=== PATIENT | male | born 1955 | race Caucasian/White ===

== ENCOUNTER 2016-11-08 08:00 | Outpatient (CLI) | payer OTHER ==
[2016-11-08 13:11] LABS: BILIRUBIN,URINE NEGATIVE (NEGATIVE)
[2016-11-08 13:24] LABS: UA CHARGE (STRIP ONLY) YES; UR CULTURE IF IND NOT INDICATED
== END 2016-11-08 08:01 | disposition home or self-care (01) ==
LOC: LAB.WCP 08:00
PROVIDERS: ATTEND Family Medicine
DX: R31.9 Hematuria, unspecified (principal)
CPT/HCPCS: 81001; 81003; 87086

== ENCOUNTER 2016-11-26 11:48 | Outpatient (CLI) | payer OTHER ==
--- NOTE | 2016-11-26 17:52 | CT Report ---
CT ABDOMEN AND PELVIS WITHOUT CONTRAST: 11/26/2016 CLINICAL INDICATION: Hematuria. Axial CT images of the abdomen and pelvis were obtained without oral or intravenous contrast. In accordance with CT protocol optimization, one or more of the following dose reduction techniques w ere utilized for this exam: automated exposure control, adjustment of mA and/or KV based on patient size, or use of iterative reconstructive technique. No previous CT is available for comparison. Limited evaluation of the lung bases demonstrates minimal atelectasis and a calcified granuloma in th e right middle lobe. ABDOMEN: The kidneys demonstrate cortical cysts bilaterally. No hydronephrosis or nephrolithiasis i s present. Allowing for the lack of intravenous contrast, the spleen, pancreas, and adrenal glands a ppear unremarkable. There is a small cyst in the right lobe of the liver. The gallbladder is not di lated. No bowel dilatation, free gas, or free fluid is present. No abdominal adenopathy is present. PELVIS: Sigmoid diverticulosis is present, without CT evidence of diverticulitis. No hydroureter or ureterolithiasis is seen. Osseous structures demonstrate degenerative changes. IMPRESSION: NO EVIDENT ETIOLOGY FOR PATIENT'S HEMATURIA. INCIDENTAL HEPATIC AND RENAL CYSTS. JOB #: [id number] EXT JOB #:[id number]
== END 2016-11-26 11:49 | disposition home or self-care (01) ==
LOC: DI 11:48
PROVIDERS: ATTEND Family Medicine
DX: R31.9 Hematuria, unspecified (principal)
CPT/HCPCS: 74176

== ENCOUNTER 2017-02-27 08:00 | Outpatient (CLI) | payer OTHER ==
[2017-02-27 12:32] LABS: BILIRUBIN,URINE NEGATIVE (NEGATIVE); GLUCOSE, URINE (UA) NEGATIVE (NEGATIVE); KETONES,URINE (UA) NEGATIVE (NEGATIVE); LEUKOCYTE ESTERASE, URINE NEGATIVE (NEGATIVE); NITRITE,URINE NEGATIVE (NEGATIVE); OCCULT BLOOD,URINE TRACE-INTA (NEGATIVE); PROTEIN,URINE NEGATIVE (NEGATIVE); UROBILINOGEN,URINE 0.2 (NORMAL) E.U./dL (NORMAL)
[2017-02-27 12:38] LABS: BACTERIA,URINE Rare /HPF (None Seen); CLARITY,URINE CLEAR (CLEAR); RBC,URINE 0-5 /HPF (0-5); SQUAMOUS EPITHELIAL CELL,UR RARE Squamous (<= Few)
[2017-02-27 12:51] LABS: ALBUMIN 4.5 g/dL (3.2-5.5); ALBUMIN/GLOBULIN RATIO 1.6 (1.0-2.2); ALKALINE PHOSPHATASE 63 IU/L (42-121); ALT ALANINE AMINOTRANSFERASE 19 IU/L (10-60); AST ASPARTATE AMINOTRANSFERASE 21 IU/L (10-42); BUN - BLOOD UREA NITROGEN 17 mg/dL (6-20); CALCIUM 9.5 mg/dL (8.5-10.3); CARBON DIOXIDE - CO2 27 mmol/L (21-32); CHLORIDE 104 mmol/L (101-111); CHOL/HDL RATIO 3.1 (<5.0); CHOLESTEROL 179 mg/dL; CREATININE 1.2 mg/dL (0.6-1.2); GFR - MDRD 62 (>89); GLUCOSE 80 mg/dL (70-100); HDL CHOLESTEROL 58 mg/dL; LDL CHOLESTEROL,CALCULATED 95 mg/dL; LDL/HDL RATIO 1.6 (<3.6); SODIUM 138 mmol/L (135-145); TOTAL PROTEIN 7.3 g/dL (6.7-8.2); VLDL CHOLESTEROL 26 mg/dL
[2017-02-27 12:56] LABS: BASOPHILS # (AUTO) 0.1 10^3/uL (0.0-0.1); EOSINOPHILS # (AUTO) 0.2 10^3/uL (0.0-0.7); EOSINOPHILS % (AUTO) 4.1 %; HGB - HEMOGLOBIN 14.9 g/dL (14.0-18.0); LYMPHOCYTES # (AUTO) 1.6 10^3/uL (1.5-3.5); LYMPHOCYTES % (AUTO) 28.8 %; MEAN CORPUSCULAR HEMOGLOBIN 30.8 pg (27.0-31.0); MEAN CORPUSCULAR HGB CONC 33.9 g/dL (32.0-36.0); MEAN CORPUSCULAR VOLUME 90.9 fL (80.0-94.0); MEAN PLATELET VOLUME 7.8 fL (7.4-11.4); MONOCYTES # (AUTO) 0.4 10^3/uL (0.0-1.0); MONOCYTES % (AUTO) 7.1 %; NEUTROPHILS # (AUTO) 3.3 10^3/uL (1.5-6.6); PLT - PLATELET COUNT 375 10^3/uL (130-450); RED BLOOD COUNT 4.85 10^6/uL (4.70-6.10); RED CELL DISTRIBUTION WIDTH 12.8 % (12.0-15.0); WHITE BLOOD COUNT 5.6 x10^3/uL (4.8-10.8)
== END 2017-02-27 08:01 ==
LOC: LAB.WCP 08:00
PROVIDERS: ATTEND Family Medicine
DX: I10 Essential (primary) hypertension (principal); E78.5 Hyperlipidemia, unspecified; R31.9 Hematuria, unspecified
CPT/HCPCS: 36415; 80053; 80061; 81001; 85025

== ENCOUNTER 2017-03-19 11:50 | Outpatient (CLI) | payer OTHER ==
[2017-03-19 19:15] LABS: BASOPHILS % (AUTO) 0.7 %; EOSINOPHILS # (AUTO) 0.4 10^3/uL (0.0-0.7); EOSINOPHILS % (AUTO) 5.6 %; HGB - HEMOGLOBIN 14.9 g/dL (14.0-18.0); LYMPHOCYTES # (AUTO) 1.6 10^3/uL (1.5-3.5); LYMPHOCYTES % (AUTO) 24.6 %; MEAN CORPUSCULAR HEMOGLOBIN 31.1 pg (27.0-31.0); MEAN CORPUSCULAR HGB CONC 35.2 g/dL (32.0-36.0); MEAN CORPUSCULAR VOLUME 88.5 fL (80.0-94.0); MEAN PLATELET VOLUME 7.5 fL (7.4-11.4); MONOCYTES # (AUTO) 0.4 10^3/uL (0.0-1.0); MONOCYTES % (AUTO) 6.7 %; NEUTROPHILS # (AUTO) 4.2 10^3/uL (1.5-6.6); NEUTROPHILS % (AUTO) 62.4 %; PLT - PLATELET COUNT 379 10^3/uL (130-450); RED BLOOD COUNT 4.79 10^6/uL (4.70-6.10); RED CELL DISTRIBUTION WIDTH 12.7 % (12.0-15.0); WHITE BLOOD COUNT 6.7 x10^3/uL (4.8-10.8)
== END 2017-03-19 11:51 ==
LOC: LAB.WCP 11:50
PROVIDERS: ATTEND Physician Assistant Medical
DX: J20.9 Acute bronchitis, unspecified (principal); R50.9 Fever, unspecified
CPT/HCPCS: 36415; 85025

== ENCOUNTER 2020-05-05 09:18 | Outpatient (CLI) | payer OTHER ==
[2020-05-05 12:26] LABS: BASOPHILS % (AUTO) 0.4 %; EOSINOPHILS # (AUTO) 0.2 10^3/uL (0.0-0.7); EOSINOPHILS % (AUTO) 3.7 %; HCT - HEMATOCRIT 44.3 % (42.0-52.0); HGB - HEMOGLOBIN 14.9 g/dL (14.0-18.0); LYMPHOCYTES # (AUTO) 1.3 10^3/uL (1.5-3.5); LYMPHOCYTES % (AUTO) 24.6 %; MEAN CORPUSCULAR HGB CONC 33.6 g/dL (32.0-36.0); MEAN CORPUSCULAR VOLUME 92.1 fL (80.0-94.0); MEAN PLATELET VOLUME 9.6 fL (7.4-11.4); MONOCYTES # (AUTO) 0.4 10^3/uL (0.0-1.0); MONOCYTES % (AUTO) 7.7 %; NEUTROPHILS # (AUTO) 3.3 10^3/uL (1.5-6.6); NEUTROPHILS % (AUTO) 63.4 %; PLT - PLATELET COUNT 328 10^3/uL (130-450); RED BLOOD COUNT 4.81 10^6/uL (4.70-6.10); RED CELL DISTRIBUTION WIDTH 12.2 % (12.0-15.0); WHITE BLOOD COUNT 5.2 x10^3/uL (4.8-10.8)
[2020-05-05 12:42] LABS: ALBUMIN 4.4 g/dL (3.2-5.5); ALBUMIN/GLOBULIN RATIO 1.7 (1.0-2.2); ALKALINE PHOSPHATASE 48 IU/L (42-121); ALT ALANINE AMINOTRANSFERASE 26 IU/L (10-60); AST ASPARTATE AMINOTRANSFERASE 21 IU/L (10-42); BILIRUBIN,TOTAL 1.2 mg/dL (0.2-1.0); BUN - BLOOD UREA NITROGEN 21 mg/dL (6-20); CALCIUM 9.6 mg/dL (8.5-10.3); CARBON DIOXIDE - CO2 27 mmol/L (21-32); CHLORIDE 103 mmol/L (101-111); CHOL/HDL RATIO 3.9 (<5.0); CHOLESTEROL 191 mg/dL; CREATININE 1.2 mg/dL (0.6-1.2); GFR - MDRD 61 (>89); GLUCOSE 94 mg/dL (70-100); HDL CHOLESTEROL 49 mg/dL; LDL CHOLESTEROL,CALCULATED 118 mg/dL; LDL/HDL RATIO 2.4 (<3.6); POTASSIUM 4.1 mmol/L (3.5-5.0); SODIUM 137 mmol/L (135-145); TRIGLYCERIDES 120 mg/dL; VLDL CHOLESTEROL 24 mg/dL
[2020-05-05 12:46] LABS: THYROID STIMULATING HORMONE 2.84 uIU/mL (0.34-5.60)
== END 2020-05-05 23:59 | disposition home or self-care (01) ==
LOC: LAB.WCP 09:18
PROVIDERS: ATTEND Physician Assistant Medical
DX: Z00.00 Encounter for general adult medical examination without abnormal findings (principal); I10 Essential (primary) hypertension; E78.5 Hyperlipidemia, unspecified; Z12.5 Encounter for screening for malignant neoplasm of prostate
CPT/HCPCS: 36415; 80053; 80061; 83721; 84153; 84443; 85025

== ENCOUNTER 2021-01-12 07:57 | Day surgery (SDC) | payer MEDICARE, BC ==
[2021-01-12] MEDS ORDERED: LACTATED RINGERS 1,000 ML IV ONE ×2 (08:29→10:56)
--- NOTE | 2021-01-12 08:35 | ANESTHESIA ---
Pre-Anesthesia VS, & Labs - Diagnosis blood per rectum - Procedure Colonoscopy Vital Signs: Temp Pulse Resp BP Pulse Ox 36.3 C L 55 L 16 155/97 H 98 01/12/21 08:14 01/12/21 08:14 01/12/21 08:14 01/12/21 08:14 01/12/21 08:14 Height: 5 ft 10 in Weight (kg): 87.7 kg Body Mass Index: 27.7 BMI Classification: Overweight - NPO >8 hours - Lab Results Lab results reviewed: Yes Home Medications and Allergies Aspirin [Children's Aspirin] 81 mg PO DAILY 08/26/14 Simvastatin 20 mg PO DAILY 08/26/14 Cetirizine [ZyrTEC] 10 mg PO 08/29/14 Allergies/Adverse Reactions: Allergies Allergy/AdvReac Type Severity Reaction Status Date / Time No Known Drug Allergies Allergy Verified 08/26/14 13:49 Anes History & Medical History - Anesthetic History Anesthesia Complications: reports: No previous complications Family history of Anesthesia Complications: Denies Family history of Malignant Hyperthermia: Denies - Medical History Cardiovascular: reports: Hypertension, High cholesterol Pulmonary: reports: None Gastrointestinal: reports: Other Urinary: reports: None Musculoskeletal: reports: None Endocrine/Autoimmune: reports: None Skin: reports: None - Surgical History General: reports: Colonoscopy Exam General: Alert, Oriented x3, Cooperative Dental: WNL Mouth Openin Fingerbreadth Neck Mobility: Normal Mallampati classification: III Respiratory: Lungs clear, Normal breath sounds, No respiratory distress, No accessory muscle use Cardiovascular: Regular rate, Normal S1, Normal S2, No murmurs Plan Anesthesia Type: General, Total IV Consent for Procedure(s) Verified and Reviewed: Yes Code Status: Attempt Resuscitation ASA classification: 2-Mild systemic disease Is this case an emergency?: No
--- NOTE | 2021-01-12 10:07 | HISTORY & PHYSICAL EXAMINATION ---
Chief Complaint - Chief Complaint Chief Complaint: blood per rectum History of Present Illness - History Obtained From Records Reviewed: yes History obtained from: pt Exam Limitations: none - History of Present Illness HPI Comment/Other: History blood streaked stool and had blood during bowel prep History - Past Medical History Cardiovascular: reports: Hypertension, High cholesterol Respiratory: reports: None Endocrine/Autoimmune: reports: None GI: reports: Other : reports: None HEENT: reports: None Psych: reports: None Musculoskeletal: reports: None Derm: reports: None MRSA Hx?: No - Past Surgical History General: reports: Colonoscopy Meds/Allgy - Home Medications Home Medications: Ambulatory Orders Medication Instructions Recorded Confirmed Aspirin [Children's Aspirin] 81 mg PO DAILY 08/26/14 08/29/14 Simvastatin 20 mg PO DAILY 08/26/14 08/29/14 Cetirizine [ZyrTEC] 10 mg PO 08/29/14 08/29/14 - Allergies Allergies/Adverse Reactions: Allergies Allergy/AdvReac Type Severity Reaction Status Date / Time No Known Drug Allergies Allergy Verified 08/26/14 13:49 Review of Systems - Other Findings Other Findings: 10 pt ros as above otherwise unremarkable Exam - Vital Signs Reviewed Vital Signs: Yes Vital Signs: Vital Signs x48h Temp Pulse Resp BP Pulse Ox 01/12/21 08:14 36.3 C L 55 L 16 155/97 H 98 - Physical Exam General Appearance: positive: No acute distress, Alert Eyes Bilateral: positive: PERRL, EOMI Neck: positive: No JVD Respiratory: positive: No respiratory distress Cardiovascular: positive: Regular rate & rhythm Abdomen: positive: Non-tender, No distention Neurologic/Psychiatric: positive: Oriented x3 Conclusion/Plan - Problem List (1) History of bloody stools Conclusion/Plan: plan colonoscopy. parq held and consent obtained. - Lab Results Lab results reviewed: Yes
[2021-01-12] MEDS ORDERED: PROPOFOL 500 MG/50 ML 500 MG/50 ML VIAL ONE (10:12)
[2021-01-12 11:24] VITALS: BP 124/90
--- NOTE | 2021-01-12 11:47 | ANESTHESIA POST OP EVALUATION ---
Anesthesia Post Eval - Post Anesthesia Eval Vitals: Last Vital Signs Temp 36.3 C L 01/12/21 11:23 Pulse 66 01/12/21 11:23 Resp 16 01/12/21 11:23 BP 124/90 H 01/12/21 11:23 Pulse Ox 98 01/12/21 11:23 CV Function Including HR & BP: Stable Pain Control: Satisfactory Nausea & Vomiting: Negative Mental Status: Baseline Respiratory Status: Airway Patent Hydration Status: Satisfactory Anesthesia Complications: None
== END 2021-01-12 07:58 | disposition home or self-care (01) ==
LOC: SDS 07:57
PROVIDERS: ATTEND Surgery
PROC: 0DBN8ZZ Excision of Sigmoid Colon, Via Natural or Artificial Opening Endoscopic (ICD-10-PCS; 2021-01-12)
PROC: 0DBK8ZX Excision of Ascending Colon, Via Natural or Artificial Opening Endoscopic, Diagnostic (ICD-10-PCS; principal; 2021-01-12 09:45)
DX: K57.31 Diverticulosis of large intestine without perforation or abscess with bleeding (principal); D12.2 Benign neoplasm of ascending colon; D12.5 Benign neoplasm of sigmoid colon; K64.8 Other hemorrhoids
CPT/HCPCS: 45380; 45385; J7120

== ENCOUNTER 2021-04-25 10:39 | Outpatient (CLI) | payer MEDICARE, BC ==
--- NOTE | 2021-04-25 16:58 | XRAY Report ---
PROCEDURE: Ankle 3 View RT INDICATIONS: SPRAIN OF R ANKLE TECHNIQUE: 3 views of the ankle were acquired. COMPARISON: None FINDINGS: Bones: Question tiny avulsion off the tip of the distal fibula. This is not definite. Ankle mortise i s normally aligned. No suspicious bony lesions. Soft tissues: No tibiotalar joint effusion. Achilles tendon appears normal. IMPRESSION: Question tiny avulsion off the tip of the distal fibula. Recommend clinical correlation with the presence or absence of point tenderness. Reviewed by: Sebastian Grimes MD on 04/25/2021 4:57 PM PDT Approved by: Sebastian Grimes MD on 04/25/2021 4:57 PM PDT Station ID: [id number]
== END 2021-04-25 23:59 | disposition home or self-care (01) ==
LOC: DI.N 10:39
PROVIDERS: ATTEND Nurse Practitioner
DX: S93.401A Sprain of unspecified ligament of right ankle, initial encounter (principal); R93.6 Abnormal findings on diagnostic imaging of limbs

== ENCOUNTER 2021-12-01 14:24 | Outpatient (CLI) | payer MEDICARE, BC | END 2021-12-01 14:25 | disposition critical access hospital (66) | LOC: EMS 14:24 | DX: S79.921A Unspecified injury of right thigh, initial encounter (principal); W11.XXXA Fall on and from ladder, initial encounter; Y92.008 Other place in unspecified non-institutional (private) residence as the place of occurrence of the external cause | CPT/HCPCS: A0425; A0427 ==

== ENCOUNTER 2021-12-01 14:43 | Inpatient (IN) | payer MEDICARE, BC ==
[2021-12-01] MEDS ORDERED: ONDANSETRON 4 MG/2 ML VIAL IVP STA ×2 (14:48)
[2021-12-01] MEDS ORDERED: HYDROmorphone 1 MG/ML CARPUJECT IVP STA ×2 (14:48→15:51)
--- NOTE | 2021-12-01 14:53 | ED Physician Documentation ---
History of Present Illness - Stated complaint Stated Complaint: FALL - History obtained from History obtained from: Patient, EMS - History of Present Illness Timing: Today Pain level max: 10 Pain level now: 8 - Additonal information Additional information: Patient is a 66-year-old male brought in by EMS today. He was up on a ladder when he fell off landing on the right hip. He is now complaining of right hip pain. Worse with movement, better with rest. He was placed in a traction splint by EMS. He is unsure if he struck his head or not, but is not having any significant headache. Does not feel that he has neck pain. No numbness or tingling. No back pain. No abdominal pain. No loss of bowel or bladder control. He has a history of hyperlipidemia. He estimates about a 10 foot fall. Review of Systems Ten Systems: 10 systems reviewed and negative Constitutional: denies: Fever, Chills Ears: denies: Ear pain Nose: denies: Rhinorrhea / runny nose, Congestion Respiratory: denies: Cough GI: denies: Nausea, Vomiting, Diarrhea Skin: denies: Rash Musculoskeletal: denies: Neck pain, Back pain Neurologic: denies: Focal weakness, Numbness, Confused, Altered mental status PD PAST MEDICAL HISTORY - Past Medical History Past Medical History: Yes Cardiovascular: Hypertension, High cholesterol Respiratory: None Endocrine/Autoimmune: None GI: Other : None HEENT: None Psych: None Musculoskeletal: None Derm: None - Past Surgical History General: Colonoscopy - Present Medications Home Medications: Ambulatory Orders Medication Instructions Recorded Confirmed Aspirin [Children's Aspirin] 81 mg PO DAILY 08/26/14 08/29/14 Simvastatin 20 mg PO DAILY 08/26/14 08/29/14 Cetirizine [ZyrTEC] 10 mg PO 08/29/14 08/29/14 - Allergies Allergies/Adverse Reactions: Allergies Allergy/AdvReac Type Severity Reaction Status Date / Time No Known Drug Allergies Allergy Verified 12/01/21 14:50 PD ED PE NORMAL - Vitals Vital signs reviewed: Yes - General General: Alert and oriented X 3, No acute distress, Well developed/nourished - HEENT HEENT: Atraumatic, PERRL, Ears normal, Moist mucous membranes, Pharynx benign - Neck Neck: Other (Soft collar was placed by EMS, mild upper C-spine tenderness to palpation.) - Cardiac Cardiac: RRR - Respiratory Respiratory: No respiratory distress, Clear bilaterally - Abdomen Abdomen: Soft, Non tender, Non distended - Back Back: No spinal TTP (No midline tenderness to palpation. No step-off or deformity) - Derm Derm: Warm and dry - Extremities Extremities: Other (Right leg is in a traction splint. Tender to palpation over the proximal right femur and greater trochanter area. Limited range of motion secondary to pain. Neurovascularly intact.) - Neuro Neuro: Alert and oriented X 3, standard machine stitcher 2-12 intact, No motor deficit, No sensory deficit, Normal speech Eye Opening: Spontaneous Motor: Obeys Commands Verbal: Oriented GCS Score: 15 - Psych Psych: Normal mood, Normal affect Results - Vitals Vitals: Vital Signs - 24 hr 12/01/21 12/01/21 12/01/21 14:50 14:55 16:55 Temperature 36.5 C 36.5 C Heart Rate 72 72 60 Respiratory 16 16 16 Rate Blood Pressure 170/90 H 170/90 H 134/96 H O2 Saturation 98 100 98 Oxygen O2 Source Room air - Labs Labs: Laboratory Tests 12/01/21 12/01/21 12/01/21 14:56 14:56 15:30 WBC 5.6 RBC 4.80 Hgb 14.5 Hct 43.0 MCV 89.6 MCH 30.2 MCHC 33.7 RDW 12.7 Plt Count 350 MPV 9.2 Neut # (Auto) 3.8 Lymph # (Auto) 1.[address] # (Auto) 0.3 Eos # (Auto) 0.1 Baso # (Auto) 0.0 Absolute Nucleated RBC 0.00 Nucleated RBC % 0.0 Sodium 136 Potassium 4.2 Chloride 104 Carbon Dioxide 26 Anion Gap 6.0 BUN 24 H Creatinine 1.1 Estimated GFR (MDRD) 67 L Glucose 118 H Calcium 9.5 Total Bilirubin 1.0 AST 22 ALT 21 Alkaline Phosphatase 55 Total Protein 7.2 Albumin 4.4 Globulin 2.8 Albumin/Globulin Ratio 1.6 Nasal Adenovirus (PCR) NOT DETECTED Nasal B. parapertussis DNA (PCR) NOT DETECTED Nasal Coronavir 229E PCR NOT DETECTED Nasal Coronavir HKU1 PCR NOT DETECTED Nasal Coronavir NL63 PCR NOT DETECTED Nasal Coronavir OC43 PCR NOT DETECTED Nasal Enterovir/Rhinovir PCR NOT DETECTED Nasal Influenza B PCR NOT DETECTED Nasal Influenza A PCR NOT DETECTED Nasal Parainfluen 1 PCR NOT DETECTED Nasal Parainfluen 2 PCR NOT DETECTED Nasal Parainfluen 3 PCR NOT DETECTED Nasal Parainfluen 4 PCR NOT DETECTED Nasal RSV (PCR) NOT DETECTED Nasal B.pertussis DNA PCR NOT DETECTED Nasal C.pneumoniae (PCR) NOT DETECTED [place] Human Metapneumo PCR NOT DETECTED Nasal M.pneumoniae (PCR) NOT DETECTED Nasal SARS-CoV-2 (PCR) NOT DETECTED - Rads (name of study) Right hip x-ray Radiology: Final report received, EMP read contemporaneously, See rad report (R femoral neck fracture) Right femur x-ray Radiology: Final report received, EMP read contemporaneously, See rad report (R femoral neck fx) Head CT Radiology: Final report received, EMP read contemporaneously, See rad report (no acute abnormality) Cervical spine CT Radiology: Final report received, EMP read contemporaneously, See rad report (no acute abnormality) PD MEDICAL DECISION MAKING - ED course Complexity details: reviewed results, re-evaluated patient, considered differential, d/w patient, d/w family, d/w home performance consultant ED course: 66 year old male with a R femoral neck fracture. Fascia iliaca block performed with good result. Discussed the case with Dr. Andrews, orthopedics, he states he will plan for OR tomorrow. Request hospitalist admission. Dr. Pappas was consulted, she states that she will not admit the patient, she request Ortho to admit the patient. Dr. Andrews will admit the patient. This document was made in part using voice recognition software. While efforts are made to proofread this document, sound alike and grammatical errors may occur. Departure - Departure Disposition: 66 [facility] DC/Xfer Clinical Impression: Femoral neck fracture Qualifiers: Encounter type: initial encounter Fracture type: closed Laterality: right Qualified Code(s): S72.001A - Fracture of unspecified part of neck of right femur, initial encounter for closed fracture Condition: Stable Discharge Date/Time: 12/01/21 18:15
[2021-12-01 15:02] LABS: BASOPHILS % (AUTO) 0.5 %; EOSINOPHILS # (AUTO) 0.1 10^3/uL (0.0-0.7); EOSINOPHILS % (AUTO) 2.5 %; HGB - HEMOGLOBIN 14.5 g/dL (14.0-18.0); LYMPHOCYTES # (AUTO) 1.3 10^3/uL (1.5-3.5); MEAN CORPUSCULAR HEMOGLOBIN 30.2 pg (27.0-31.0); MEAN CORPUSCULAR HGB CONC 33.7 g/dL (32.0-36.0); MEAN CORPUSCULAR VOLUME 89.6 fL (80.0-94.0); MEAN PLATELET VOLUME 9.2 fL (7.4-11.4); MONOCYTES # (AUTO) 0.3 10^3/uL (0.0-1.0); MONOCYTES % (AUTO) 4.7 %; NEUTROPHILS # (AUTO) 3.8 10^3/uL (1.5-6.6); NEUTROPHILS % (AUTO) 67.9 %; PLT - PLATELET COUNT 350 10^3/uL (130-450); RED CELL DISTRIBUTION WIDTH 12.7 % (12.0-15.0); WHITE BLOOD COUNT 5.6 x10^3/uL (4.8-10.8)
[2021-12-01] MEDS ORDERED: TRANEXAMIC ACID 1,000 MG in SODIUM CHLORIDE 0.9% 100ML 100 ML IV STA (15:10)
[2021-12-01 15:15] LABS: ALBUMIN 4.4 g/dL (3.2-5.5); ALBUMIN/GLOBULIN RATIO 1.6 (1.0-2.2); CALCIUM 9.5 mg/dL (8.5-10.3); CREATININE 1.1 mg/dL (0.6-1.2); POTASSIUM 4.2 mmol/L (3.5-5.0); TOTAL PROTEIN 7.2 g/dL (6.7-8.2)
[2021-12-01] MEDS ORDERED: DEXAMETHASONE 10 MG/ML VIAL IVP STA (15:15)
[2021-12-01] MEDS ORDERED: ROPIVACAINE 0.5% PF 30 ML VIAL SUBQ STA (15:15)
--- NOTE | 2021-12-01 15:42 | XRAY Report ---
PROCEDURE: Hip w/Pelvis 2-3V RT INDICATIONS: fall off ladder, R hip pain TECHNIQUE: AP pelvis with lateral view(s) of the right hip(s). COMPARISON: None. FINDINGS: Bones: Subcapital right femoral neck fracture with mild impaction. The femoral head appears slightly rotated clockwise. The remainder of the pelvis and left hip are grossly intact on this single view. Soft tissues: The visualized bowel gas pattern is normal. No suspicious soft tissue calcifications. IMPRESSION: 1. Right subcapital femoral neck fracture without visible dislocation. Reviewed by: Pilar Mejia MD on 12/01/2021 2:41 PM EDSON Approved by: Pilar Mejia MD on 12/01/2021 2:41 PM AKDINO Station ID: [id number]
--- NOTE | 2021-12-01 15:43 | XRAY Report ---
PROCEDURE: Femur 1V RT INDICATIONS: FALL OFF LADDER R FEMUR PAIN TECHNIQUE: Single view of the distal right femur was acquired. COMPARISON: None. FINDINGS: Bones: No displaced fractures or dislocations. No suspicious bony lesions. Soft tissues: No suspicious soft tissue calcifications or masses. IMPRESSION: No displaced distal femur fractures on this single view. Reviewed by: Pilar Mejia MD on 12/01/2021 2:42 PM EDSON Approved by: Pilar Mejia MD on 12/01/2021 2:42 PM AKDINO Station ID: [id number]
--- NOTE | 2021-12-01 15:46 | CT Report ---
PROCEDURE: HEAD WO INDICATIONS: fall off ladder, head injury TECHNIQUE: Noncontrast 4.5 mm thick angled axial sections acquired from the foramen magnum to the vertex. For r adiation dose reduction, the following was used: automated exposure control, adjustment of mA and/or kV according to patient size. COMPARISON: None. FINDINGS: Image quality: Excellent. CSF spaces: Basal cisterns are patent. No extra-axial fluid collections. Ventricles are normal in size and shape. Brain: No midline shift. No intracranial masses or hemorrhage. Slight age related cortical volume loss. Mcclain-white matter interface is normal. Skull and face: Calvarium and visualized facial bones are intact, without suspicious lesions. Sinuses: Visualized sinuses and mastoids are clear. IMPRESSION: 1. No CT evidence of acute intracranial trauma. 2. No significant soft tissue injury or visible fractures. Reviewed by: Pilar Mejia MD on 12/01/2021 2:44 PM EDSON Approved by: Pilar Mejia MD on 12/01/2021 2:44 PM AKDT Station ID: [id number]
[2021-12-01] MEDS ORDERED: diazePAM INJ 5 MG/ML SYRINGE IVP STA (15:49)
--- NOTE | 2021-12-01 15:50 | CT Report ---
PROCEDURE: CERVICAL SPINE WO INDICATIONS: fall off ladder, neck pain TECHNIQUE: Noncontrast 3 mm thick sections acquired from the skull base to the T4 level. Sagittal and coronal r eformats were then constructed. For radiation dose reduction, the following was used: automated exp osure control, adjustment of mA and/or kV according to patient size. COMPARISON: None. FINDINGS: Image quality: Excellent. Bones: No fractures or dislocations. Degenerative disc height loss at C5-6 with minor endplate spur ring. Mild degenerative change at the atlantodental interval. Mild multilevel left-sided facet arthro jose. Visualized superior ribs are intact. Soft tissues: Prevertebral soft tissues are normal in thickness. No paravertebral hematomas. No ap ical pneumothoraces. IMPRESSION: 1. No CT evidence of acute cervical spine trauma. Reviewed by: Pilar Mejia MD on 12/01/2021 2:48 PM AKDT Approved by: Pilar Mejia MD on 12/01/2021 2:48 PM AKDT Station ID: [id number]
[2021-12-01] MEDS ORDERED: KETOROLAC 30 MG/ML VIAL IVP STA (15:51)
[2021-12-01] MEDS ORDERED: ROPIVACAINE 0.5% PF 20 ML AMPULE SUBQ ONE (16:00)
[2021-12-01 16:27] LABS: B. PARAPERTUSSIS- RESP PCR PAN NOT DETECTED; B. PERTUSSIS- RESP PCR PANEL NOT DETECTED; C. PNEUMONIAE- RESP PCR PANEL NOT DETECTED; CORONAVIRUS 229E-RESP PCR NOT DETECTED; CORONAVIRUS HKU1-RESP PCR NOT DETECTED; CORONAVIRUS NL63-RESP PCR NOT DETECTED; CORONAVIRUS OC43-RESP PCR NOT DETECTED; HUMAN METAPNEUMOVIRUS NOT DETECTED; INFLUENZA A- RESP PCR PANEL NOT DETECTED; INFLUENZA B - RESP PCR PANEL NOT DETECTED; M. PNEUMONIAE- RESP PCR PANEL NOT DETECTED; PARAINFLUENZA VIRUS 1 NOT DETECTED; PARAINFLUENZA VIRUS 2 NOT DETECTED; PARAINFLUENZA VIRUS 3 NOT DETECTED; PARAINFLUENZA VIRUS 4 NOT DETECTED; RHINOVIRUS/ENTEROVIRUS NOT DETECTED; RSV- RESP PCR PANEL NOT DETECTED; SARS-CoV-2 -RESP PCR PANEL NOT DETECTED
--- NOTE | 2021-12-01 17:42 | HISTORY & PHYSICAL EXAMINATION ---
HPI - History Obtained From History obtained from: Patient, Family Exam limitations: No limitations - History of Present Illness HPI Comment/Other: This is a 66-year-old man who was referred from the emergency room, Dr. Kelley. The patient was on a lean to ladder, about 10 to 12 feet high. He was trying to secure a large wood beam to the roof area when the beam gave way and the ladder started to move away from its support. He jumped from the ladder and landed on his right leg. He had immediate pain to the right upper thigh and could not bear weight. His family was at home, children, and they sought help for him; he was brought to the emergency room at [facility]. He has no other complaints of pain other than the right upper thigh. He denies neck, back, upper extremity, chest, abdominal or left lower extremity pain. He has no pain to his right knee or lower leg. He did have a Achilles tendon rupture to the right leg treated nonoperatively and this seems to be recovering well. 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 He is very active and enjoys pickleball and that is how he injured his Achilles tendon. His general health has been very good. He den ies chest pain, shortness of breath, dizziness or syncope associated with the fall, no history of loss of consciousness. He does have a history of hypertension, does not smoke or use alcohol excessively. He denies any history of myocardial infarction, stroke, cancer, diabetes or pulmonary embolus. He denies bleeding ulcers or hepatitis.This is a 66-year-old man who was referred from the emergency room, Dr. Kelley. The patient was on a lean to ladder, about 10 to 12 feet high. He was trying to secure a large wood beam to the roof area when the beam gave way and the ladder started to move away from its support. He jumped from the ladder and landed on his right leg. He had immediate pain to the right upper thigh and could not bear weight. His family was at home, children, and they sought help for him; he was brought to the emergency room at [facility]. He has no other complaints of pain other than the right upper thigh. He denies neck, back, upper extremity, chest, abdominal or left lower extremity pain. He has no pain to his right knee or lower leg. He did have a Achilles tendon rupture to the right leg treated nonoperatively and this seems to be recovering well. 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 He is very active and enjoys pickleball and that is how he injured his Achilles tendon. His general health has been very good. He denies chest pain, shortness of breath, dizziness or syncope associated with the fall, no history of loss of consciousness. He does have a history of hypertension, does not smoke or use alcohol excessively. He denies any history of myocardial infarction, stroke, cancer, diabetes or pulmonary embolus. He denies bleeding ulcers or hepatitis.He is normally ambulatory and has no previous problems with his right hip. There is no family history of arthritis of hips. PMH/PSH - Past Medical History Cardiovascular: positive: Hypertension, High cholesterol Respiratory: positive: None Endocrine/Autoimmune: positive: None GI: positive: Other : positive: None HEENT: positive: None Psych: positive: None Musculoskeletal: positive: None Derm: positive: None MRSA Hx?: No - Past Surgical History General: positive: Colonoscopy Social & Family Hx - Social History Does the pt smoke?: No ETOH Use: Beer Does the pt have substance abuse?: No Meds/Allgy - Home Medications Home Medications: Ambulatory Orders Medication Instructions Recorded Confirmed Aspirin [Children's Aspirin] 81 mg PO DAILY 08/26/14 08/29/14 Simvastatin 20 mg PO DAILY 08/26/14 08/29/14 Cetirizine [ZyrTEC] 10 mg PO 08/29/14 08/29/14 - Allergies Allergies/Adverse Reactions: Allergies Allergy/AdvReac Type Severity Reaction Status Date / Time No Known Drug Allergies Allergy Verified 12/01/21 14:50 Exam - Vital Signs Vital Signs: Vital Signs x48h Temp Pulse Resp BP Pulse Ox 12/01/21 16:55 60 16 134/96 H 98 12/01/21 14:55 36.5 C 72 16 170/90 H 100 12/01/21 14:50 36.5 C 72 16 170/90 H 98 - Physical Exam General Appearance: positive: Mild distress Respiratory: positive: Chest non-tender, No respiratory distress, Breath sounds nml Cardiovascular: positive: Regular rate & rhythm, No murmur, No gallop Peripheral Pulses: positive: 2+ Abdomen: positive: Non-tender Back: positive: Nml inspection Skin: positive: Color nml Neurologic/Psychiatric: positive: Oriented x3, Motor nml, Sensation nml, Mood/affect nml Comments/Other: He moves both upper extremities very well fully without pain as well as the left lower extremity. The right leg is shortened and externally rotated and there is associated marked pain with any movement, especially rotation. Skin is intact about the right hip. There is no sign of hematoma about right hip. Ne urovascular is intact to upper and lower extremities Results - Lab Results Fish Bones: 12/01/21 14:56 12/01/21 14:56 Other Lab Results: Lab Results x24hrs 12/01/21 12/01/21 12/01/21 Range/Units 15:30 14:56 14:56 WBC 5.6 (4.8-10.8) x10^3/uL RBC 4.80 (4.70-6.10) 10^6/uL Hgb 14.5 (14.0-18.0) g/dL Hct 43.0 (42.0-52.0) % MCV 89.6 (80.0-94.0) fL MCH 30.2 (27.0-31.0) pg MCHC 33.7 (32.0-36.0) g/dL RDW 12.7 (12.0-15.0) % Plt Count 350 (130-450) 10^3/uL MPV 9.2 (7.4-11.4) fL Neut # (Auto) 3.8 (1.5-6.6) 10^3/uL Lymph # (Auto) 1.3 L (1.5-3.5) 10^3/uL [place] # (Auto) 0.3 (0.0-1.0) 10^3/uL Eos # (Auto) 0.1 (0.0-0.7) 10^3/uL Baso # (Auto) 0.0 (0.0-0.1) 10^3/uL Absolute Nucleated RBC 0.00 x10^3/uL Nucleated RBC % 0.0 /100WBC Sodium 136 (135-145) mmol/L Potassium 4.2 (3.5-5.0) mmol/L Chloride 104 (101-111) mmol/L Carbon Dioxide 26 (21-32) mmol/L Anion Gap 6.0 (6-13) BUN 24 H (6-20) mg/dL Creatinine 1.1 (0.6-1.2) mg/dL Estimated GFR (MDRD) 67 L (>89) Glucose 118 H (70-100) mg/dL Calcium 9.5 (8.5-10.3) mg/dL Total Bilirubin 1.0 (0.2-1.0) mg/dL AST 22 (10-42) IU/L ALT 21 (10-60) IU/L Alkaline Phosphatase 55 (42-121) IU/L Total Protein 7.2 (6.7-8.2) g/dL Albumin 4.4 (3.2-5.5) g/dL Globulin 2.8 (2.1-4.2) g/dL Albumin/Globulin Ratio 1.6 (1.0-2.2) Nasal Adenovirus (PCR) NOT DETECTED Nasal B. parapertussis DNA (PCR) NOT DETECTED Nasal Coronavir 229E PCR NOT DETECTED Nasal Coronavir HKU1 PCR NOT DETECTED Nasal Coronavir NL63 PCR NOT DETECTED Nasal Coronavir OC43 PCR NOT DETECTED Nasal Enterovir/Rhinovir PCR NOT DETECTED Nasal Influenza B PCR NOT DETECTED Nasal Influenza A PCR NOT DETECTED Nasal Parainfluen 1 PCR NOT DETECTED Nasal Parainfluen 2 PCR NOT DETECTED Nasal Parainfluen 3 PCR NOT DETECTED Nasal Parainfluen 4 PCR NOT DETECTED Nasal RSV (PCR) NOT DETECTED Nasal B.pertussis DNA PCR NOT DETECTED Nasal C.pneumoniae (PCR) NOT DETECTED [place] Human Metapneumo PCR NOT DETECTED Nasal M.pneumoniae (PCR) NOT DETECTED Nasal SARS-CoV-2 (PCR) NOT DETECTED - Diagnostic Imaging Results Diagnostic Imaging Results: negative: Read independently (There is a displaced femoral neck fracture right hip) Impression/Plan - Problem List Problem List: # 1Displaced femoral neck fracture right hip The plan would be partial or total hip replacement right hip. I have discussed the pros and cons of both forms of surgical treatment, favor the latter because of reports of improved function in younger and healthy patients. The patient is in agreement to surgery. The risks, goals and likelihood of achieving goals, alternatives to surgery and their consequences, disability and rarely were discussed. The complication rate is greater for total hip replacement than a hemiarthroplasty. Because we do not have someone that can sterilize equipment this weekend and we do not have hip replacement equipment here, his surgery will need to be delayed until Friday morning to allow for arrival and processing of hip replacement equipment. Our hospitalist is refusing to see the patient. The patient is agreement to surgery, discussed with both he and his ; both are in agreement. An informed consent has been obtained as best as possible on the current urgent situation. #2 Controlled hypertension
[2021-12-01] MEDS ORDERED: DOCUSATE SODIUM 100 MG CAPSULE PO PRN (17:53)
[2021-12-01] MEDS ORDERED: fentaNYL 250 MCG/5 ML VIAL IVP PRN (17:53)
[2021-12-01] MEDS ORDERED: ONDANSETRON ODT 4 MG TABLET TL PRN (17:53)
[2021-12-01] MEDS ORDERED: fentaNYL 100 MCG/2 ML VIAL IVP PRN (18:11)
[2021-12-01] MEDS: NS W/20 MEQ KCL 1,000 ML IV SCH (18:28)
[2021-12-01] MEDS: CELECOXIB 100 MG CAPSULE PO SCH (19:00)
[2021-12-01] MEDS ORDERED: ACETAMINOPHEN 325 MG TABLET PO SCH (22:00)
[2021-12-01] MEDS: oxyCODONE 5 MG TABLET PO PRN (23:47)
[2021-12-02] MEDS: NS W/20 MEQ KCL 1,000 ML IV SCH ×3 (01:51→17:50)
[2021-12-02] MEDS: ACETAMINOPHEN 500 MG TABLET PO SCH ×3 (05:06→21:10)
--- NOTE | 2021-12-02 08:59 | PHARMACY PROGRESS NOTE ---
- Best Possible Medication History Admit Date and Time: 12/01/21 4138 Processed by: Nursing Medication History completed: Yes As the person ultimately responsible for medication therapy, providers are able to order a medication from an existing home medication list in [facility] via the "Reconcile Routine" prior to Confirmation of that medication by office support clerk. Such practice is discouraged except when the physician, in their clinical judgment, deems that a medical need exists for a medication without regard to previous use.
[2021-12-02] MEDS: CELECOXIB 100 MG CAPSULE PO SCH ×2 (09:07→21:10)
--- NOTE | 2021-12-02 09:50 | PROVIDER PROGRESS NOTE ---
Subjective - General Admit Date: 12/01/21 Procedure Date: 12/03/21 Post Op Days: 1 Procedure Performed: Planned for right total hip arthroplasty 12/03/2021 - Review of Systems Pulmonary: positive: No symptoms Cardiovascular: positive: No symptoms Skin: positive: No symptoms Psychiatric: positive: No symptoms - Other Other Information/Narrative: No nausea, vomiting, fevers, chills Pain control adequate when laying supine, increased pain with elevated head of bed Objective - Patient Data Vital Signs: Vital Signs x48h Temp Pulse Resp BP Pulse Ox 12/02/21 07:21 36.3 C L 62 16 124/80 97 12/02/21 05:09 36.3 C L 61 18 128/84 H 98 Weight: Weight 11/30/21 12/01/21 12/02/21 23:59 23:59 23:59 Weight (kg) 87.5 kg Intake & Output: Intake and Output Totals x24h 11/30/21 12/01/21 12/02/21 23:59 23:59 23:59 Intake Total 110 1362.917 Output Total 250 500 Balance -140 862.917 - Lab Results Lab Results: 12/01/21 14:56 12/01/21 14:56 Other Lab Results: Lab Results x24hrs 12/01/21 12/01/21 12/01/21 Range/Units 15:30 14:56 14:56 WBC 5.6 (4.8-10.8) x10^3/uL RBC 4.80 (4.70-6.10) 10^6/uL Hgb 14.5 (14.0-18.0) g/dL Hct 43.0 (42.0-52.0) % MCV 89.6 (80.0-94.0) fL MCH 30.2 (27.0-31.0) pg MCHC 33.7 (32.0-36.0) g/dL RDW 12.7 (12.0-15.0) % Plt Count 350 (130-450) 10^3/uL MPV 9.2 (7.4-11.4) fL Neut # (Auto) 3.8 (1.5-6.6) 10^3/uL Lymph # (Auto) 1.3 L (1.5-3.5) 10^3/uL Dukes # (Auto) 0.3 (0.0-1.0) 10^3/uL Eos # (Auto) 0.1 (0.0-0.7) 10^3/uL Baso # (Auto) 0.0 (0.0-0.1) 10^3/uL Absolute Nucleated RBC 0.00 x10^3/uL Nucleated RBC % 0.0 /100WBC Sodium 136 (135-145) mmol/L Potassium 4.2 (3.5-5.0) mmol/L Chloride 104 (101-111) mmol/L Carbon Dioxide 26 (21-32) mmol/L Anion Gap 6.0 (6-13) BUN 24 H (6-20) mg/dL Creatinine 1.1 (0.6-1.2) mg/dL Estimated GFR (MDRD) 67 L (>89) Glucose 118 H (70-100) mg/dL Calcium 9.5 (8.5-10.3) mg/dL Total Bilirubin 1.0 (0.2-1.0) mg/dL AST 22 (10-42) IU/L ALT 21 (10-60) IU/L Alkaline Phosphatase 55 (42-121) IU/L Total Protein 7.2 (6.7-8.2) g/dL Albumin 4.4 (3.2-5.5) g/dL Globulin 2.8 (2.1-4.2) g/dL Albumin/Globulin Ratio 1.6 (1.0-2.2) Nasal Adenovirus (PCR) NOT DETECTED Nasal B. parapertussis DNA (PCR) NOT DETECTED Nasal Coronavir 229E PCR NOT DETECTED Nasal Coronavir HKU1 PCR NOT DETECTED Nasal Coronavir NL63 PCR NOT DETECTED Nasal Coronavir OC43 PCR NOT DETECTED Nasal Enterovir/Rhinovir PCR NOT DETECTED Nasal Influenza B PCR NOT DETECTED Nasal Influenza A PCR NOT DETECTED Nasal Parainfluen 1 PCR NOT DETECTED Nasal Parainfluen 2 PCR NOT DETECTED Nasal Parainfluen 3 PCR NOT DETECTED Nasal Parainfluen 4 PCR NOT DETECTED Nasal RSV (PCR) NOT DETECTED Nasal B.pertussis DNA PCR NOT DETECTED Nasal C.pneumoniae (PCR) NOT DETECTED Grayson Human Metapneumo PCR NOT DETECTED Nasal M.pneumoniae (PCR) NOT DETECTED Nasal SARS-CoV-2 (PCR) NOT DETECTED - Imaging Results Radiology Imaging: positive: EMP read indepedently (Displaced right femoral neck fracture) - Current Medications Current Medications: Current Medications Generic Name Dose Route Start Last Admin Trade Name Freq PRN Reason Stop Dose Admin Acetaminophen 1,000 mg 12/02/21 06:00 12/02/21 05:06 Acetaminophen 500 Mg Tablet PO 1,000 mg TID PENNIE Administration Celecoxib 200 mg 12/01/21 21:00 12/02/21 09:07 Celecoxib 100 Mg Capsule PO 200 mg BID PENNIE Administration Fentanyl 25 mcg 12/01/21 18:11 12/01/21 18:25 Fentanyl 100 Mcg/2 Ml Vial IVP 25 mcg Q2HR PRN Administration PAIN Potassium Chloride/Sodium Chloride 1,000 mls @ 125 mls/hr 12/01/21 18:00 12/02/21 01:51 Normal Saline 0.9% W/20 Meq Kcl IV 125 mls/hr .Q8H PENNIE Administration Oxycodone HCl 5 mg 12/01/21 17:53 12/01/21 23:47 Oxycodone 5 Mg Tablet PO 5 mg Q6HR PRN Administration PAIN - Physical Exam General Appearance: positive: No acute distress Neurologic/Psychiatric: positive: Oriented x3 Comments/Other: Right leg shortened, externally rotated No hematoma Neurovascularly intact to right lower extremity ABX Reporting Has patient been on IV antibiotics over the past 48 hours?: No Impression/Plan - Problem List Problem List: Displaced femoral neck fracture planned for right total hip arthroplasty tomorrow 12/03/[address] Andrews at [facility]. Rediscussed the plan for surgery including indications and risks. Patient is in agreement to proceed with surgery tomorrow morning. PLAN: - right CHANTE tomorrow 12/03/2021 - NPO at midnight tonight - Hold home anti-hypertensives until post operative day 1 - Activity: bed rest - DVT prophylaxis: SCDs preoperatively - Antibiotics: none - Pain control: acetaminophen, celebrex, oxycodone, IV fentanyl if unable to tolerate PO intake
[2021-12-02] MEDS: CETIRIZINE 10 MG TABLET PO SCH (12:45)
[2021-12-02] MEDS: oxyCODONE 5 MG TABLET PO PRN (17:22)
[2021-12-03] MEDS: NS W/20 MEQ KCL 1,000 ML IV SCH ×4 (02:00→22:52)
[2021-12-03] MEDS: ACETAMINOPHEN 500 MG TABLET PO SCH ×4 (05:43→21:11)
--- NOTE | 2021-12-03 07:33 | ANESTHESIA ---
Pre-Anesthesia VS, & Labs - Diagnosis right femoral neck fracture - Procedure right total hip arthroplasty Vital Signs: Temp Pulse Resp BP Pulse Ox O2 Flow Rate 36.4 C L 65 16 146/85 H 94 12/03/21 05:24 12/03/21 05:24 12/03/21 05:24 12/03/21 05:24 12/03/21 05:24 Height: 5 ft 10 in Weight (kg): 87.5 kg Body Mass Index: 27.6 BMI Classification: Overweight - NPO >8 hours - Lab Results Current Lab Results: Laboratory Tests 12/01/21 14:56: Sodium 136, Potassium 4.2, Chloride 104, Carbon Dioxide 26, Anion Gap 6.0, BUN 24 H, Creatinine 1.1, Estimated GFR (MDRD) 67 L, Glucose 118 H, Calcium 9.5, Total Bilirubin 1.0, AST 22, ALT 21, Alkaline Phosphatase 55, Total Protein 7.2, Albumin 4.4, Globulin 2.8, Albumin/Globulin Ratio 1.6 12/01/21 14:56: WBC 5.6, RBC 4.80, Hgb 14.5, Hct 43.0, MCV 89.6, MCH 30.2, MCHC 33.7, RDW 12.7, Plt Count 350, MPV 9.2, Neut # (Auto) 3.8, Lymph # (Auto) 1.3 L, Cloud # (Auto) 0.3, Eos # (Auto) 0.1, Baso # (Auto) 0.0, Absolute Nucleated RBC 0.00, Nucleated RBC % 0.0 Lab results reviewed: Yes Fish Bones: 12/01/21 14:56 12/01/21 14:56 Home Medications and Allergies Home Medications: Ambulatory Orders Losartan [Cozaar] 50 mg PO DAILY 12/01/21 Active Medications Acetaminophen (Acetaminophen 500 Mg Tablet) 1,000 mg PO TID [facility] Last Admin: 12/03/21 05:43 Dose: 1,000 mg Celecoxib (Celecoxib 100 Mg Capsule) 200 mg PO BID [facility] Last Admin: 12/02/21 21:10 Dose: Not Given Cetirizine HCl (Cetirizine 10 Mg Tablet) 10 mg PO DAILY [facility] Last Admin: 12/02/21 12:45 Dose: 10 mg Docusate Sodium (Docusate Sodium 100 Mg Capsule) 100 mg PO BID PRN PRN Reason: Constipation Fentanyl (Fentanyl 100 Mcg/2 Ml Vial) 25 mcg IVP Q2HR PRN PRN Reason: PAIN Last Admin: 12/01/21 18:25 Dose: 25 mcg Potassium Chloride/Sodium Chloride (Normal Saline 0.9% W/20 Meq Kcl) 1,000 mls @ 125 mls/hr IV .Q8H PENNIE Last Admin: 12/03/21 02:00 Dose: 125 mls/hr Ondansetron HCl (Ondansetron Odt 4 Mg Tablet) 4 mg TL Q6HR PRN PRN Reason: Nausea / Vomiting Oxycodone HCl (Oxycodone 5 Mg Tablet) 5 mg PO Q6HR PRN PRN Reason: PAIN Last Admin: 12/02/21 17:22 Dose: 5 mg Simvastatin 20 mg PO DAILY 08/26/14 Cetirizine [ZyrTEC] 10 mg PO DAILY 08/29/14 Losartan [Cozaar] 50 mg PO DAILY 12/01/21 Allergies/Adverse Reactions: Allergies Allergy/AdvReac Type Severity Reaction Status Date / Time No Known Drug Allergies Allergy Verified 12/01/21 14:50 Anes History & Medical History - Anesthetic History Anesthesia Complications: reports: No previous complications - Medical History Cardiovascular: reports: Hypertension, High cholesterol Pulmonary: reports: None Gastrointestinal: reports: Other Urinary: reports: None Neuro: reports: None Musculoskeletal: reports: None Endocrine/Autoimmune: reports: None Blood Disorders: reports: None Skin: reports: None Smoking Status: Never smoker Psychosocial: reports: No issues indicated History of Cancer?: No - Surgical History General: reports: Colonoscopy Exam General: Alert, Oriented x3, Cooperative, No acute distress Dental: WNL Mouth Openin Fingerbreadth Neck Mobility: Normal Mallampati classification: II Thyromental Distance: 4-6 cm Mental/Cognitive Status: Alert/Oriented X3, Normal for patient Plan Anesthesia Type: Spinal, Fascia Iliaca Block (right) Regional Block: Per Surgeon's request for Post Op pain control Consent for Procedure(s) Verified and Reviewed: Yes Code Status: Attempt Resuscitation ASA classification: 2-Mild systemic disease Is this case an emergency?: No
[2021-12-03] MEDS ORDERED: BUPIVACAINE 0.5% PF 10 ML VIAL ONE (07:34)
[2021-12-03] MEDS ORDERED: fentaNYL 100 MCG/2 ML VIAL ONE ×2 (07:35→13:14)
[2021-12-03] MEDS ORDERED: MIDAZOLAM 2 MG/2 ML VIAL ONE (07:35)
[2021-12-03] MEDS ORDERED: KETAMINE 500 MG/10 ML VIAL ONE (07:35)
[2021-12-03] MEDS ORDERED: PROPOFOL 500 MG/50 ML 500 MG/50 ML VIAL ONE ×3 (07:36→11:31)
[2021-12-03] MEDS ORDERED: SODIUM CHLORIDE 0.9% 10 ML VIAL IVP ONE ×2 (07:37→09:46)
[2021-12-03] MEDS ORDERED: VANCOMYCIN 1 GM VIAL ONE (07:42)
[2021-12-03] MEDS ORDERED: HYDROmorphone 0.5 MG/0.5 ML SYRINGE IVP PRN (07:54)
[2021-12-03] MEDS ORDERED: NALOXONE 0.4 MG/ML VIAL IVP PRN (07:54)
[2021-12-03] MEDS ORDERED: ATROPINE ABBOJECT 1 MG/10 ML SYRINGE IVP PRN (07:54)
[2021-12-03] MEDS ORDERED: MORPHINE 2 MG/ML CARPUJECT IVP PRN (07:54)
[2021-12-03] MEDS ORDERED: ONDANSETRON 4 MG/2 ML VIAL IVP PRN ×2 (07:54→08:05)
[2021-12-03] MEDS ORDERED: LACTATED RINGERS 1,000 ML IV SCH (08:00)
[2021-12-03] MEDS ORDERED: SODIUM CHLORIDE FLUSH 0.9% 10 ML SYRINGE IVP PRN (08:05)
[2021-12-03] MEDS ORDERED: SODIUM CHLORIDE 0.9% 1,000 ML IV ONE (08:05)
[2021-12-03] MEDS ORDERED: DOCUSATE SODIUM 100 MG CAPSULE PO PRN (08:05)
[2021-12-03] MEDS ORDERED: ceFAZolin 1 GM VIAL ONE (08:38)
[2021-12-03] MEDS ORDERED: TRANEXAMIC ACID 1,000 MG/10 ML VIAL ONE (08:39)
[2021-12-03] MEDS ORDERED: DEXAMETHASONE 10 MG/ML VIAL ONE (08:39)
[2021-12-03] MEDS ORDERED: VANCOMYCIN 1 GM VIAL MC ONE (09:25)
[2021-12-03] MEDS ORDERED: ROPIVACAINE 0.5% PF 20 ML VIAL ONE (12:01)
--- NOTE | 2021-12-03 12:29 | OPERATIVE REPORT ---
Operative Report - General Admit Date: 12/01/21 Procedure Date: 12/03/21 Planned Procedure: RightTotal hip replacement Pre-Op Diagnosis: Completely displaced femoral neck fracture right hip Procedure Performed: Right total hip replacement: [employer] #9 femoral component, high offset, 36 mm +4 femoral head Oxinium, 56 R3 acetabular press-fit cup with 20 degree polyethylene liner Post Op Diagnosis: Same as preoperative diagnosis - Procedure Note Primary Surgeon: Varinder Andrews MD Secondary Surgeon: Linda DALEY Anesthesia Provider: Shani Kowalski CRNA Anesthesia Technique: Regional block, Spinal Estimated Blood Loss (mL): 350 Indications: This is a healthy active 66-year-old gentleman who fell about 12 feet from a ladder and was admitted to the hospital 2 days ago with an isolated injury to right hip. He sustained a displaced femoral neck fracture of the right hip confirmed by history, exam and routine radiographs. He was stable preoperatively. An informed consent was obtained for right total hip replacement; patient and in agreement with the surgery. Findings: The acetabulum was intact. There is a completely displaced femoral neck fracture right hip. This was a mid cervical femoral neck fracture. Complications: None - Other Other Information/Narrative: The patient was brought to the operating room and was placed in the supine position. After satisfactory anesthesia was obtained, he was placed in a lateral decubitus position with the right hip facing superiorly. The right lowe r extremity was prepped and draped in a sterile manner in the usual fashion. He was secured in the lateral decubitus position utilizing the pegboard positioner to stabilize the torso and pelvis in a lateral position. U drapes were applied, right hip and lower extremity prepped and draped in a sterile manner in the usual fashion. Axillary roll had been placed beneath the axilla. A timeout procedure was performed by the entire operating room team and all were in agreement. He did receive 2 g of Ancef intravenously, 1 g of Tranxemic acid and 10 mg of Decadron A proximally 12 cm incision was made over the lateral hip beginning at the trochanteric ridge distally and extending it proximal to the greater trochanter. The fascia ceasar was split in line with the incision. The inferior third of the gluteus medius was released at its tendinous junction. The hip capsule was exposed by abducting and externally rotating the leg. Part of the anterior hip capsule was excised to help expose the femoral head which was tucked beneath the neck, making extraction of the head more difficult than usual. The femoral head was removed with a corkscrew and measured 52 mm in diameter using bone calipers. The acetabulum was exposed with a anterior acetabular retractor placed directly against bone to prevent soft tissue impingement of the femoral nerve and a second retractor more posteriorly. The second tractor was placed directly against bone as well to prevent impingement of the sciatic nerve. A superior retractor was inserted to the acetabulum and was secured with a Steinmann pin. The acetabular rim was exposed. The surgeon was on the anterior side of the acetabulum. Reaming was done initially with a 45 mm reamer and carried out in increments to 55 mm. A 56 mm reamer was used just for the rim. A trial 55 mm acetabular press-fit cup was inserted and found to have good fixation. Therefore, a 56 mm R3 acetabular component was impacted in position and approximately 40 degrees of abduction and 25 degrees of anteversion. This was stable to push pull and seated well. Next of the femoral side of the replacement was exposed. The right leg was placed in a hip pocket anteriorly w ith flexion and external rotation. A box osteotome was used to open the femoral canal. A canal finding reamer was then utilized. A lateralizing broach was then utilized and an initial broach afterwards. Broaching was carried out and serial increments until #9 was reached. This #9 broach allowed for a stable fit to push pull and rotation. A trial reduction was performed. During the trial reduction the previously inserted neutral polyethylene bearing seemed to dislodge, presumably due to some soft tissue entrapment that made seeding of the component visually intact but not secure. The acetabular side of the joint was then exposed again and a 20 degree lipped acetabular liner was impacted and was stable. Trial reduction was again performed using a +4 mm 36 mm head, high offset femoral stem. There is seem to be good stability with dislocation at 90 degrees external rotation and full adduction. Hip flexion and internal rotation was full and stable. The final femoral components were inserted, #9 high offset. This was stable to push pull and rotation. A 36 mm +4 Oxinium femoral head was impacted. The hip was reduced and found to be stable. Leg lengths appear to be relatively equal in the leg length tension was good with a shuck test.A 3-minute Betadine dilute lavage was performed, followed by 2 g of vancomycin powder into the hip joint. With the hip abductor was repaired with #1 strata fix suture, subcutaneous tissue with 2 0 strata fix suture, skin with 3 0 strata fix subcuticular, Dermabond and then a Mepilex dressing. He tolerated the procedure well. A physician product development assistant was medically necessary to help with prepping and draping, positioning, protection of vital structures, assistance during the procedure including wound closure, dressing and/or splinting.
[2021-12-03] MEDS ORDERED: LACTATED RINGERS 1,000 ML IV ONE (12:37)
[2021-12-03] MEDS ORDERED: HYDROmorphone 0.5 MG/0.5 ML SYRINGE ONE (12:44)
[2021-12-03] MEDS ORDERED: traMADol 50 MG TABLET PO PRN (12:45)
[2021-12-03] MEDS: fentaNYL 100 MCG/2 ML VIAL IVP PRN ×2 (13:16→13:55)
[2021-12-03] MEDS: SODIUM CHLORIDE FLUSH 0.9% 10 ML SYRINGE IVP SCH ×2 (14:31→18:53)
[2021-12-03] MEDS: CEFAZOLIN 2G/50ML 0.9% NS 2 GM/50 ML BAG IV SCH ×2 (14:42→22:05)
[2021-12-03] MEDS: ethyl alcohoL 62% SWAB AMPULE NAS SCH ×2 (15:17→21:13)
[2021-12-03] MEDS: CELECOXIB 100 MG CAPSULE PO SCH ×2 (15:17→21:12)
[2021-12-03] MEDS: CETIRIZINE 10 MG TABLET PO SCH (15:17)
[2021-12-03] MEDS: ASPIRIN EC 81 MG TABLET PO SCH ×2 (15:17→21:12)
--- NOTE | 2021-12-03 15:28 | ANESTHESIA POST OP EVALUATION ---
Anesthesia Post Eval - Post Anesthesia Eval Vitals: Last Vital Signs Temp 36.4 C L 12/03/21 14:51 Pulse 70 12/03/21 14:51 Resp 18 12/03/21 14:51 BP 140/107 H 12/03/21 14:51 Pulse Ox 99 12/03/21 14:51 O2 Flow Rate CV Function Including HR & BP: Stable Pain Control: Satisfactory Nausea & Vomiting: Negative Mental Status: Baseline Respiratory Status: Airway Patent Hydration Status: Satisfactory Anesthesia Complications: None
[2021-12-03] MEDS: oxyCODONE 5 MG TABLET PO PRN (16:07)
--- NOTE | 2021-12-03 16:43 | XRAY Report ---
PROCEDURE: Pelvis 1 View INDICATIONS: Post operative imaging TECHNIQUE: 1 view(s) of the pelvis acquired. COMPARISON: None. FINDINGS: Bones: Olena status post right hip arthroplasty. Bony and hardware elements are in expected anatomic alignment. Soft tissues: Operative changes are present within the overlying soft tissues. No suspicious soft tis karla calcifications. IMPRESSION: Expected appearance status post right hip arthroplasty. Reviewed by: Justyna Kirk MD on 12/03/2021 4:41 PM PDT Approved by: Justyna Kirk MD on 12/03/2021 4:41 PM PDT Station ID: [id number]
[2021-12-03] MEDS ORDERED: ATORVASTATIN 10 MG TABLET PO SCH (21:00)
[2021-12-04] MEDS: SODIUM CHLORIDE FLUSH 0.9% 10 ML SYRINGE IVP SCH ×2 (01:47→08:17)
[2021-12-04] MEDS: ACETAMINOPHEN 500 MG TABLET PO SCH ×3 (03:09→14:56)
[2021-12-04] MEDS: LOSARTAN 50 MG TABLET PO SCH ×2 (07:06→08:16)
[2021-12-04] MEDS: hydroCHLOROthiazide 12.5 MG CAPSULE PO SCH ×2 (07:06→08:17)
--- NOTE | 2021-12-04 07:39 | PROVIDER PROGRESS NOTE ---
Subjective - General Admit Date: 12/01/21 Procedure Date: 12/03/21 Post Op Days: 1 Procedure Performed: right total hip arthroplasty on 12/03/[address] Andrews - Review of Systems Wound/Incisions: positive: Dressing dry and intact, No drainage General: positive: No symptoms. negative: Fever, Weakness Pulmonary: positive: No symptoms. negative: Shortness of breath, Pleuritic chest pain Cardiovascular: positive: No symptoms. negative: Chest pain Gastrointestinal: negative: Nausea, Vomiting Genitourinary: positive: No symptoms (Minimal pain on right hip when supine in bed He has not been up to chair or to bathroom but has had the head of the bed elevated) Skin: positive: No symptoms Psychiatric: positive: No symptoms - Other Other Information/Narrative: Minimal pain when supine in bed He has not been up to chair or up to bathroom He has not worked with physical therapy yet No nausea, vomiting, chest pain, dyspnea, fever or chills No urinary retention Objective - Patient Data Vital Signs: Vital Signs x48h Temp Pulse Resp BP Pulse Ox 12/04/21 05:00 36.7 C 70 16 127/83 H 98 12/04/21 00:09 36.4 C L 63 16 118/75 97 Weight: Weight 12/02/21 12/03/21 12/04/21 23:59 23:59 23:59 Weight (kg) 87.5 kg Intake & Output: Intake and Output Totals x24h 12/02/21 12/03/21 12/04/21 23:59 23:59 23:59 Intake Total 3887.917 3609.58 Output Total 725 2275 275 Balance 3162.917 1334.58 -275 - Lab Results Lab Results: 12/01/21 14:56 12/01/21 14:56 - Imaging Results Radiology Imaging: positive: EMP read indepedently - Current Medications Current Medications: Current Medications Generic Name Dose Route Start Last Admin Trade Name Freq PRN Reason Stop Dose Admin Acetaminophen 1,000 mg 12/03/21 09:00 12/04/21 03:09 Acetaminophen 500 Mg Tablet PO 1,000 mg Q6H PENNIE Administration Alcohol 1 amp 12/03/21 09:00 12/03/21 21:13 Ethyl Alcohol 62% Swab Ampule FEDERICO 1 amp BID PENNIE Administration Aspirin 81 mg 12/03/21 09:00 12/03/21 21:12 Aspirin Ec 81 Mg Tablet PO 81 mg BID PENNIE Administration Atorvastatin Calcium 10 mg 12/03/21 21:00 12/03/21 21:12 Atorvastatin 10 Mg Tablet PO 10 mg QPM PENNIE Administration Celecoxib 200 mg 12/03/21 09:00 12/03/21 21:12 Celecoxib 100 Mg Capsule PO 200 mg BID PENNIE Administration Cetirizine HCl 10 mg 12/02/21 10:00 12/03/21 15:17 Cetirizine 10 Mg Tablet PO 10 mg DAILY PENNIE Administration Docusate Sodium 100 mg 12/03/21 08:05 12/03/21 21:13 Docusate Sodium 100 Mg Capsule PO 100 mg BID PRN Administration Constipation Fentanyl 25 mcg 12/01/21 18:11 12/01/21 18:25 Fentanyl 100 Mcg/2 Ml Vial IVP 25 mcg Q2HR PRN Administration PAIN Hydrochlorothiazide 12.5 mg 12/04/21 07:00 12/04/21 07:06 Hydrochlorothiazide 12.5 Mg Capsule PO 12.5 mg DAILY PENNIE Administration Potassium Chloride/Sodium Chloride 1,000 mls @ 125 mls/hr 12/03/21 09:00 12/03/21 22:52 Normal Saline 0.9% W/20 Meq Kcl IV Not Given .Q8H PENNIE Losartan Potassium 100 mg 12/04/21 07:00 12/04/21 07:06 Losartan 50 Mg Tablet PO 100 mg DAILY PENNIE Administration Oxycodone HCl 5 mg 12/03/21 08:05 12/03/21 16:07 Oxycodone 5 Mg Tablet PO 5 mg Q6HR PRN Administration PAIN Sodium Chloride 10 ml 12/03/21 09:00 12/04/21 01:47 Sodium Chloride Flush 0.9% 10 Ml Syringe IVP 10 ml 0100,0900,1700 PENNIE Administration Sodium Chloride 10 ml 12/03/21 08:05 12/03/21 22:05 Sodium Chloride Flush 0.9% 10 Ml Syringe IVP 10 ml PRN PRN Administration NEEDED PER PROVIDER ORDERS - Physical Exam Wound/Incisions: positive: Dressing dry and intact. negative: Drainage, Erythema General Appearance: positive: No acute distress, Alert Respiratory: positive: No respiratory distress Extremities: positive: Other (Femoral and sciatic nerve in tact Neurovascularly in tact to the right lower extremity). negative: Calf tenderness Neurologic/Psychiatric: positive: Oriented x3 Impression/Plan - Problem List Problem List: 66 year old male with a past medical history of hypertension and hyperlipidemia is post operative day 1 from a right total hip arthroplasty by Dr. Andrews at [facility] on 12/03/2021. Patient is recovering well with appropriate pain control and he is neurovascularly intact. Pending physical therapy evaluation today and assurance patient has access to a walker at home, patient is safe to discharge home today. The patient was seen by Dr. Andrews and myself. Plan: - Discharge home today with front wheeled walker with weight bearing status of weight bearing as tolerated - Avoiding crossing your legs when sitting in a chair or bed - 650 mg of acetaminophen every 4 hours and 600 mg of ibuprofen every 4 hours in scheduled manner for pain control - Oxycodone and tramadol as needed for break through pain, sent to [facility] on 12/03/2021 - Ice the hip to reduce pain and swelling - Aspirin 81 mg twice daily for 6 weeks for blood clot prevention - Follow up in orthopedic clinic on Friday12/10/2021 - Dressing should remain in place until follow up, it is okay to shower with dressing - Refer to discharge instructions for clinic information, please call the office if you have any concerns
--- NOTE | 2021-12-04 08:05 | DISCHARGE SUMMARY ---
"Discharge Summary Admit Date: 12/01/21 Discharge Date: 12/03/21 Discharging Provider: Dr. Andrews Code Status: Attempt Resuscitation Condition at Discharge: Stable Discharge Disposition: 01 Home, Self Care - DIAGNOSES Admission Diagnoses: Displaced femoral neck fracture, right hip Discharge Diagnoses with Status of Each Condition: Displaced femoral neck fracture, right hip - HPI History of Present Illness: 66 year old male with a past medical history of hypertension and hyperlipidemia is postoperative day 1 from a right total hip arthroplasty performed by Dr. Andrews on 12/03/[address] [facility]. On 12/01/2021 the patient was standing on a 12 foot ladder building a garage. The ladder gave way and he jumped off the ladder landing on both feet. Upon impact with the ground he felt pain in his right hip. There is no bruising, abrasions or lacerations to the skin. He sought care at [facility] emergency department. He was found to have a shortened and externally rotated right leg. X-ray imaging was obtained which showed a femoral neck fracture of the right hip. - CONSULTS | PROCEDURES Procedures: Right total hip arthroplasty - HOSPITAL COURSE Hospital Course: On 12/01/2021 patient fell from a 12 foot ladder onto his feet noticing pain in his right hip. He was seen at the [facility] emergency department where he was found to have a shortened and externally rotated right lower extremity with evidence of a femoral neck fracture of the right hip on x-ray. Orthopedic surgery was consulted for evaluation of the patient. Patient was seen by Dr. Covarrubias in the emergency department and admitted by the orthopedic surgery team with surgical plan of right total hip arthroplasty secondary to right femoral neck fracture. On 12/03/2021 patient underwent right total hip arthroplasty without complication. His pain was managed appropriately postoperatively, he tolerated oral intake and had no postoperative urinary retention. Physical therapy was ordered to work with patient to ensure patient safety with ambulation after discharge. Both his surgical course and hospital course were uncomplicated. Patient is planned for discharge on 12/04/2021 pending physical therapy agreement and safe gait training today. Discharge instructions provided outline pain management with Tylenol, ibuprofen, oxycodone and tramadol as needed for pain. If that the schedule up with the orthopedic surgery team on 12/10/2021 in the office. He was discharged on aspirin 81 mg twice daily for DVT prophylaxis. He was discharged with weightbearing status of weightbearing as tolerated with front wheel walker at all times. Mepilex dressing was dry and intact, he was told to leave the dressing in place until follow-up with orthopedic clinic. - ALLERGIES Allergies/Adverse Reactions: Allergies Allergy/AdvReac Type Severity Reaction Status Date / Time No Known Drug Allergies Allergy Verified 12/01/21 14:50 - MEDICATIONS Home Medications: Ambulatory Orders Medication Instructions Recorded Confirmed Simvastatin 20 mg PO DAILY 08/26/14 12/01/21 Cetirizine [ZyrTEC] 10 mg PO DAILY 08/29/14 12/01/21 Losartan [Cozaar] 50 mg PO DAILY 12/01/21 12/01/21 Oxycodone HCl [Roxicodone] 5 mg PO Q6HR PRN #20 tablet 12/03/21 traMADol [Ultram] 50 mg PO Q4-6H PRN #20 tablet 12/03/21 Home Medications Other | Comments: Discharged on aspirin 81 mg twice daily for 6 weeks for blood clot prevention. - PHYSICAL EXAM AT DISCHARGE General Appearance: positive: No acute distress Respiratory: positive: No respiratory distress Skin: positive: Color nml, Warm, Dry Extremities: positive: Non-tender, No pedal edema Neurologic/Psychiatric: positive: Oriented x3 Physical Exam Other/Comments: Dry, intact dressing without drainage Femoral and sciatic nerve intact Neurovasculalry intact to right lower extremity Appropriate range of motion for post operative day 1 Patient pleasant, alert and oriented - LABS Result Diagrams: 12/01/21 14:56 12/01/21 14:56 - DIAGNOSTIC IMAGING Diagnostic Imaging Results: Read independently (Expected post operative changes after right total hip arthroplasty. Appropriate alignment) - FOLLOW UP Follow Up: Follow up with Orthopedic clinic on 12/10/[address] Andrews Please call the office to schedule the appointment - TIME SPENT Time Spent in Discharge (Minutes): 20"
[2021-12-04] MEDS: ethyl alcohoL 62% SWAB AMPULE NAS SCH (08:16)
[2021-12-04] MEDS: CELECOXIB 100 MG CAPSULE PO SCH (08:16)
[2021-12-04] MEDS: CETIRIZINE 10 MG TABLET PO SCH (08:16)
[2021-12-04] MEDS: ASPIRIN EC 81 MG TABLET PO SCH (08:16)
[2021-12-04] MEDS: oxyCODONE 5 MG TABLET PO PRN (09:44)
[2021-12-04] MEDS ORDERED: MIDAZOLAM 2 MG/2 ML VIAL ONE (09:54)
[2021-12-04 12:21] VITALS: BP 127/102
[2021-12-05] MEDS ORDERED: LOSARTAN 50 MG TABLET PO SCH (09:00)
== END 2021-12-04 15:15 | disposition home or self-care (01) | DRG 522 ==
LOC: EDUNIT# → ED 14:43 → MS2 17:53
PROVIDERS: ADMIT Physician Assistant Surgical; ATTEND Physician Assistant Surgical
PROC: 0SR906A Replacement of Right Hip Joint with Oxidized Zirconium on Polyethylene Synthetic Substitute, Uncemented, Open Approach (ICD-10-PCS; principal; 2021-12-03 08:00)
DX: S72.011A Unspecified intracapsular fracture of right femur, initial encounter for closed fracture (principal); S72.031A Displaced midcervical fracture of right femur, initial encounter for closed fracture; I10 Essential (primary) hypertension; Z20.822 Contact with and (suspected) exposure to COVID-19; M54.2 Cervicalgia; W11.XXXA Fall on and from ladder, initial encounter; E78.00 Pure hypercholesterolemia, unspecified
CPT/HCPCS: 36415; 64450; 70450; 72125; 72170; 73502; 73551; 80053; 85025; 87633; 96365; 96375; 96376; 97161; 97166; 97530; 97535; 99284; 99285; A9270; J0690; J1170; J2795; J3370; J7120

== ENCOUNTER 2022-01-06 10:48 | Outpatient (CLI) | payer MEDICARE, BC | END 2022-01-06 23:59 | disposition short-term general hospital (02) | LOC: EMS 10:48 | DX: R20.0 Anesthesia of skin (principal); M25.551 Pain in right hip; Z96.641 Presence of right artificial hip joint | CPT/HCPCS: A0425; A0429 ==

== ENCOUNTER 2022-01-08 08:00 | Outpatient (CLI) | payer MEDICARE, BC ==
--- NOTE | 2022-01-08 16:31 | XRAY Report ---
PROCEDURE: Hip 2 View RT INDICATIONS: RIGHT HIP ARTHROPLASTY TECHNIQUE: 2 views of the hip were acquired. COMPARISON: 01/06/2022 plain films FINDINGS: Bones: No fractures or dislocations. No suspicious bony lesions. The visualized pelvic ring appear s intact. Expected appearance of right hip arthroplasty. Soft tissues: No suspicious soft tissue calcifications or masses. IMPRESSION: Expected appearance of right hip arthroplasty. No acute fracture. No osseous lesion. If symptoms and/ or clinical suspicion for pathology continue, further assessment with repeat plain films, or advanced imaging (e.g., CT, MRI, or bone scan) is recommended for further assessment. Reviewed by: Tyrone Gonsalez MD on 01/08/2022 4:29 PM PST Approved by: Tyrone Gonsalez MD on 01/08/2022 4:29 PM PST Station ID: [id number]
== END 2022-01-08 23:59 | disposition home or self-care (01) ==
LOC: DI.WOS 08:00
PROVIDERS: ATTEND Orthopaedic Surgery
DX: S72.031A Displaced midcervical fracture of right femur, initial encounter for closed fracture (principal); Z96.641 Presence of right artificial hip joint

== ENCOUNTER 2022-01-29 08:00 | Outpatient (CLI) | payer MEDICARE, BC ==
--- NOTE | 2022-01-29 14:50 | XRAY Report ---
PROCEDURE: Hip 2 View RT INDICATIONS: RIGHT HIP ARTHROPLASTY TECHNIQUE: AP view the pelvis and lateral view of the right hip were acquired. COMPARISON: Right hip radiographs 01/08/2022 FINDINGS: Bones: Postsurgical changes are seen from right hip arthroplasty. Hardware components are seen in st able positions. No acute osseous abnormality. Mild to moderate degenerative changes are seen from lef t hip. No suspicious bony lesions. The visualized pelvic ring appears intact. Soft tissues: No suspicious soft tissue calcifications or masses. IMPRESSION: Subtle appearance of a right hip arthroplasty. Reviewed by: Sage Blood MD on 01/29/2022 2:49 PM PST Approved by: Sage Blood MD on 01/29/2022 2:49 PM PST Station ID: [id number]
== END 2022-01-29 23:59 | disposition home or self-care (01) ==
LOC: DI.WOS 08:00
PROVIDERS: ATTEND Orthopaedic Surgery
DX: T84.028A Dislocation of other internal joint prosthesis, initial encounter (principal)

== ENCOUNTER 2022-06-10 17:16 | Outpatient (CLI) | payer MEDICARE, BC ==
--- NOTE | 2022-06-10 11:03 | XRAY Report ---
PROCEDURE: Hip 2 View RT INDICATIONS: RIGHT HIP ARTHROPLASTY F/U TECHNIQUE: 2 views of the hip were acquired. COMPARISON: 01/29/2022 FINDINGS: Bones: Right hip arthroplasty. Mild degenerative changes of the left hip partially seen. No displace d fracture or dislocation identified. Soft tissues: No suspicious calcifications. IMPRESSION: Expected appearance of the right hip arthroplasty. Reviewed by: Venancio Dos Santos MD on 06/10/2022 11:01 AM PDT Approved by: Venancio Dos Santos MD on 06/10/2022 11:01 AM PDT Station ID: [id number]
== END 2022-06-10 17:17 | disposition home or self-care (01) ==
LOC: DI.WOS 17:16
PROVIDERS: ATTEND Orthopaedic Surgery
DX: Z96.641 Presence of right artificial hip joint (principal)

== ENCOUNTER 2022-09-05 08:00 | Outpatient (CLI) | payer MEDICARE, BC ==
--- NOTE | 2022-09-05 14:32 | XRAY Report ---
PROCEDURE: Hip 2 View RT INDICATIONS: RIGHT HIP PAIN TECHNIQUE: 2 views of the hip were acquired. COMPARISON: Right hip 06/10/2022 FINDINGS: Bones: No fractures or dislocations. No suspicious bony lesions. Stable appearance of right hip a rthroplasty. Hardware is intact without evidence of hardware fracture or periprosthetic lucency to moncada ggest loosening. [id number] left hip arthritic narrowing. Soft tissues: No suspicious soft tissue calcifications or masses. IMPRESSION: Stable appearance of right hip arthroplasty. Reviewed by: Sherri Hoskins MD on 09/05/2022 2:30 PM PDT Approved by: Sherri Hoskins MD on 09/05/2022 2:30 PM PDT Station ID: [id number]
== END 2022-09-05 23:59 | disposition home or self-care (01) ==
LOC: DI.WOS 08:00
PROVIDERS: ATTEND Orthopaedic Surgery
DX: M25.551 Pain in right hip (principal); Z96.641 Presence of right artificial hip joint